=== PATIENT | male | born 1955 | race American Indian/Alaskan Native ===

== ENCOUNTER 2019-04-19 17:00 | Emergency (ER) | payer OTHER ==
--- NOTE | 2019-04-19 17:14 | Event Note ---
ED Screening Note ED Screening Note: large fluid filled blister to the left foot leg swelling worse in last three-four days cardiac arrest on 04/08/2019 chronic lower extremity swelling no CP exertion SOB orthopnea has been taking his medications lasix 80 mg a day states he has been complaint with fluid intake +smoker, quit two weeks ago This initial assessment/diagnostic orders/clinical plan/treatment(s) is/are subject to change based on patients health status, clinical progression and re- assessment by fellow clinical providers in the ED. Further treatment and workup at subsequent clinical providers discretion. Patient/guardian urged not to elope from the ED as their condition may be serious if not clinically assessed and managed. Initial orders include: labs, XR, EKG
--- NOTE | 2019-04-19 18:16 | XRay Report ---
CHEST 1 VIEW INDICATION / CLINICAL INFORMATION: SOB. COMPARISON: 04/10/2019 FINDINGS: SUPPORT DEVICES: None. HEART / MEDIASTINUM: No significant abnormality. LUNGS / PLEURA: Development of mild interstitial opacity and bibasilar subsegmental atelectasis. No p neumothorax. ADDITIONAL FINDINGS: No significant additional findings. IMPRESSION: 1. Minimal acute interstitial pulmonary edema. Signer Name: Prabhakar Barry MD Signed: 04/19/2019 6:12 PM Workstation Name: [id number]
[2019-04-19 18:51] LABS: Basophils % (Auto) 0.3 % (0.0-1.8); Eosinophils # (Auto) 0.2 K/mm3 (0.0-0.4); Eosinophils % (Auto) 2.7 % (0.0-4.3); Hematocrit 36.7 % (35.5-45.6); Hemoglobin 12.2 gm/dl (11.8-15.2); Lymphocytes # (Auto) 1.5 K/mm3 (1.2-5.4); Lymphocytes % (Auto) 19.5 % (13.4-35.0); Mean Corpuscular HGB Conc 33 % (32-34); Mean Corpuscular Volume 88 fl (84-94); Monocytes # (Auto) 1.2 K/mm3 (0.0-0.8); Monocytes % (Auto) 15.4 % (0.0-7.3); Platelet Count 297 K/mm3 (140-440); Red Blood Count 4.19 M/mm3 (3.65-5.03); Red Cell Distribution Width 15.6 % (13.2-15.2)
[2019-04-19 19:02] LABS: INR 1.15 (0.87-1.13); Partial Thromboplastin Time 30.8 Sec. (24.2-36.6)
[2019-04-19 19:13] LABS: Albumin 3.1 g/dL (3.9-5); Calcium 7.8 mg/dL (8.4-10.2)
[2019-04-19 19:39] LABS: Chol/HDL Ratio 2.66 %
[2019-04-19] MEDS ORDERED: FUROSEMIDE 20 MG TAB PO ONE (19:43)
--- NOTE | 2019-04-19 19:44 | Emergency Department Report ---
ED General Adult HPI - General Chief complaint: Dyspnea/Respdistress Stated complaint: JANICE/LT FT BLISTER Time Seen by Provider: 04/19/19 17:13 Source: patient Mode of arrival: Wheelchair Limitations: Physical Limitation - History of Present Illness Initial comments: Patient presents to the emergency department with a chief complaint of a blister on his left foot. Patient states he was recently discharged last week for cardiac arrest. Patient denies any chest pain, shortness breath, or abdominal pain. Patient states she noticed a blister on his foot this morning and his made him come to the hospital for evaluation. Patient states he wanted to wait to go to the [facility] tomorrow but his made him come. Patient states he did not take his Lasix this morning but otherwise is taking his medications as prescribed. - Related Data Home Medications Medication Instructions Recorded Confirmed Last Taken ALBUTEROL NEB's 2.5 mg IH QID PRN 04/09/19 04/09/19 Unknown Albuterol Sulfate [Proair 2 puff PO QID PRN 04/09/19 04/09/19 Unknown Respiclick] Alogliptin Benzoate [Alogliptin] 6.25 mg PO DAILY 04/09/19 04/09/19 Unknown Atorvastatin Calcium [Lipitor] 40 mg PO DAILY 04/09/19 04/09/19 Unknown Budesonide/Formoterol Fumarate 2 puff PO BID 04/09/19 04/09/19 Unknown [Symbicort 160-4.5 Mcg Inhaler] Divalproex ER [Depakote ER] 1,000 mg PO QHS 04/09/19 04/09/19 Unknown Insulin Aspart (Nf) [NovoLOG 10 unit SQ AC 04/09/19 04/09/19 Unknown Flexpen] Insulin Glargine [Lantus VIAL] 100 unit SUB-Q BID 04/09/19 04/09/19 Unknown Melatonin 3MG TAB 3 mg PO HS PRN 04/09/19 04/09/19 Unknown Nicotine Polacrilex [Nicotine 2 mg PO Q2H PRN 04/09/19 04/09/19 Unknown Lozenge] Sildenafil Citrate 100 mg PO DAILY PRN 04/09/19 04/09/19 Unknown Tamsulosin [Flomax] 0.4 mg PO QDAY 04/09/19 04/09/19 Unknown guaiFENesin 400 mg PO TID 04/09/19 04/09/19 Unknown Previous Rx's Medication Instructions Recorded Last Taken Type ALBUTEROL NEB's [Proventil 0.083% 2.5 mg IH Q4HRT PRN nebu 04/14/19 Unknown Rx NEBS] Acetaminophen [Acetaminophen TAB] 650 mg PO Q4H PRN tablet 04/14/19 Unknown Rx Aspirin EC [Halfprin EC] 81 mg PO QDAY #30 04/14/19 Unknown Rx AtorvaSTATin [Lipitor] 40 mg PO QHS #30 tablet 04/14/19 Unknown Rx Budesonide [Pulmicort Respules] 0.5 mg IH Q12HRT #7 nebu 04/14/19 Unknown Rx Furosemide [Lasix TAB] 80 mg PO BID #60 04/14/19 Unknown Rx Insulin Glargine [Lantus VIAL] 10 units SUB-Q QHS units 04/14/19 Unknown Rx Linagliptin [Tradjenta] 5 mg PO QDAY tablet 04/14/19 Unknown Rx Lispro Insulin [HumaLOG] 0 unit SUB-Q ACHS units 04/14/19 Unknown Rx Min Oil/Petrolatum [Artificial 1 applic OU Q4HR PRN tube 04/14/19 Unknown Rx Tears Ophth Oint] carvediloL [Coreg] 12.5 mg PO BID #60 04/14/19 Unknown Rx Allergies Allergy/AdvReac Type Severity Reaction Status Date / Time No Known Allergies Allergy Verified 04/08/19 06:26 ED Review of Systems ROS: Stated complaint: JANICE/LT FT BLISTER Other details as noted in HPI Comment: All other systems reviewed and negative Constitutional: denies: chills, fever Eyes: denies: eye pain, eye discharge, vision change ENT: denies: ear pain, throat pain Respiratory: denies: cough, shortness of breath, wheezing Cardiovascular: denies: chest pain, palpitations Endocrine: no symptoms reported Gastrointestinal: denies: abdominal pain, nausea, diarrhea Genitourinary: denies: urgency, dysuria Musculoskeletal: denies: back pain, joint swelling, arthralgia Skin: denies: rash, lesions Neurological: denies: headache, weakness, paresthesias Psychiatric: denies: anxiety, depression Hematological/Lymphatic: denies: easy bleeding, easy bruising ED Past Medical Hx - Past Medical History Hx Hypertension: Yes Hx Congestive Heart Failure: Yes Hx Diabetes: Yes Hx Asthma: No Hx COPD: No - Surgical History Past Surgical History?: No - Social History Smoking Status: Never Smoker Substance Use Type: None - Medications Home Medications: Home Medications Medication Instructions Recorded Confirmed Last Taken Type ALBUTEROL NEB's 2.5 mg IH QID PRN 04/09/19 04/09/19 Unknown History Albuterol Sulfate [Proair 2 puff PO QID PRN 04/09/19 04/09/19 Unknown History Respiclick] Alogliptin Benzoate [Alogliptin] 6.25 mg PO DAILY 04/09/19 04/09/19 Unknown History Atorvastatin Calcium [Lipitor] 40 mg PO DAILY 04/09/19 04/09/19 Unknown History Budesonide/Formoterol Fumarate 2 puff PO BID 04/09/19 04/09/19 Unknown History [Symbicort 160-4.5 Mcg Inhaler] Divalproex ER [Depakote ER] 1,000 mg PO QHS 04/09/19 04/09/19 Unknown History Insulin Aspart (Nf) [NovoLOG 10 unit SQ AC 04/09/19 04/09/19 Unknown History Flexpen] Insulin Glargine [Lantus VIAL] 100 unit SUB-Q BID 04/09/19 04/09/19 Unknown History Melatonin 3MG TAB 3 mg PO HS PRN 04/09/19 04/09/19 Unknown History Nicotine Polacrilex [Nicotine 2 mg PO Q2H PRN 04/09/19 04/09/19 Unknown History Lozenge] Sildenafil Citrate 100 mg PO DAILY PRN 04/09/19 04/09/19 Unknown History Tamsulosin [Flomax] 0.4 mg PO QDAY 04/09/19 04/09/19 Unknown History guaiFENesin 400 mg PO TID 04/09/19 04/09/19 Unknown History ALBUTEROL NEB's [Proventil 0.083% 2.5 mg IH Q4HRT PRN nebu 04/14/19 Unknown Rx NEBS] Acetaminophen [Acetaminophen TAB] 650 mg PO Q4H PRN tablet 04/14/19 Unknown Rx Aspirin EC [Halfprin EC] 81 mg PO QDAY #30 04/14/19 Unknown Rx AtorvaSTATin [Lipitor] 40 mg PO QHS #30 tablet 04/14/19 Unknown Rx Budesonide [Pulmicort Respules] 0.5 mg IH Q12HRT #7 nebu 04/14/19 Unknown Rx Furosemide [Lasix TAB] 80 mg PO BID #60 04/14/19 Unknown Rx Insulin Glargine [Lantus VIAL] 10 units SUB-Q QHS units 04/14/19 Unknown Rx Linagliptin [Tradjenta] 5 mg PO QDAY tablet 04/14/19 Unknown Rx Lispro Insulin [HumaLOG] 0 unit SUB-Q ACHS units 04/14/19 Unknown Rx Min Oil/Petrolatum [Artificial 1 applic OU Q4HR PRN tube 04/14/19 Unknown Rx Tears Ophth Oint] carvediloL [Coreg] 12.5 mg PO BID #60 04/14/19 Unknown Rx ED Physical Exam - General Limitations: Physical Limitation General appearance: alert, in no apparent distress - Head Head exam: Present: atraumatic, normocephalic - Eye Eye exam: Present: normal appearance, PERRL, EOMI - ENT ENT exam: Present: mucous membranes moist - Neck Neck exam: Present: normal inspection - Respiratory Respiratory exam: Present: normal lung sounds bilaterally, other (life vest present). Absent: respiratory distress - Cardiovascular Cardiovascular Exam: Present: regular rate, normal rhythm. Absent: systolic murmur, diastolic murmur, rubs, gallop - GI/Abdominal GI/Abdominal exam: Present: soft, normal bowel sounds. Absent: distended, tenderness - Rectal Rectal exam: Present: deferred - Extremities Exam Extremities exam: Present: normal inspection - Back Exam Back exam: Present: normal inspection - Neurological Exam Neurological exam: Present: alert, oriented X3, CN II-XII intact. Absent: motor sensory deficit - Psychiatric Psychiatric exam: Present: normal affect, normal mood - Skin Skin exam: Present: warm, dry, intact, normal color, vesicles (patient has an approximately 3 cm in diameter blister to the left tonsil aspect of his foot that is not painful and not sloughing). Absent: rash ED Course Vital Signs 04/19/19 17:12 Temperature 97.6 F Pulse Rate 99 H Respiratory 24 Rate Blood Pressure 138/88 O2 Sat by Pulse 98 Oximetry ED Medical Decision Making - Lab Data Result diagrams: 04/19/19 18:21 04/19/19 18:21 Lab Results 04/19/19 04/19/19 04/19/19 Range/Units 18:21 18:21 18:21 WBC 7.7 (4.5-11.0) K/mm3 RBC 4.19 (3.65-5.03) M/mm3 Hgb 12.2 (11.8-15.2) gm/dl Hct 36.7 (35.5-45.6) % MCV 88 (84-94) fl MCH 29 (28-32) pg MCHC 33 (32-34) % RDW 15.6 H (13.2-15.2) % Plt Count 297 (140-440) K/mm3 Lymph % (Auto) 19.5 (13.4-35.0) % [place] % (Auto) 15.4 H (0.0-7.3) % Eos % (Auto) 2.7 (0.0-4.3) % Baso % (Auto) 0.3 (0.0-1.8) % Lymph # 1.5 (1.2-5.4) K/mm3 [place] # 1.2 H (0.0-0.8) K/mm3 Eos # 0.2 (0.0-0.4) K/mm3 Baso # 0.0 (0.0-0.1) K/mm3 Seg Neutrophils % 62.1 (40.0-70.0) % Seg Neutrophils # 4.8 (1.8-7.7) K/mm3 PT 14.9 (12.2-14.9) Sec. INR 1.15 H (0.87-1.13) APTT 30.8 (24.2-36.6) Sec. Sodium 146 H (137-145) mmol/L Potassium 3.6 (3.6-5.0) mmol/L Chloride 104.0 (98-107) mmol/L Carbon Dioxide 29 (22-30) mmol/L Anion Gap 17 mmol/L BUN 18 (9-20) mg/dL Creatinine 1.6 H (0.8-1.5) mg/dL Estimated GFR 53 ml/min BUN/Creatinine Ratio 11 % Glucose 96 (75-100) mg/dL Calcium 7.8 L (8.4-10.2) mg/dL Total Bilirubin 0.40 (0.1-1.2) mg/dL AST 19 (5-40) units/L ALT 42 (7-56) units/L Alkaline Phosphatase 152 H (35-129) units/L Troponin T 0.036 H (0.00-0.029) ng/mL NT-Pro-B Natriuret Pep (0-900) pg/mL Total Protein 7.1 (6.3-8.2) g/dL Albumin 3.1 L (3.9-5) g/dL Albumin/Globulin Ratio 0.8 % Triglycerides (2-149) mg/dL Cholesterol (50-199) mg/dL LDL Cholesterol Direct (50-130) mg/dL HDL Cholesterol (40-59) mg/dL Cholesterol/HDL Ratio % 04/19/19 04/19/19 Range/Units 18:21 18:21 WBC (4.5-11.0) K/mm3 RBC (3.65-5.03) M/mm3 Hgb (11.8-15.2) gm/dl Hct (35.5-45.6) % MCV (84-94) fl MCH (28-32) pg MCHC (32-34) % RDW (13.2-15.2) % Plt Count (140-440) K/mm3 Lymph % (Auto) (13.4-35.0) % [place] % (Auto) (0.0-7.3) % Eos % (Auto) (0.0-4.3) % Baso % (Auto) (0.0-1.8) % Lymph # (1.2-5.4) K/mm3 [place] # (0.0-0.8) K/mm3 Eos # (0.0-0.4) K/mm3 Baso # (0.0-0.1) K/mm3 Seg Neutrophils % (40.0-70.0) % Seg Neutrophils # (1.8-7.7) K/mm3 PT (12.2-14.9) Sec. INR (0.87-1.13) APTT (24.2-36.6) Sec. Sodium (137-145) mmol/L Potassium (3.6-5.0) mmol/L Chloride (98-107) mmol/L Carbon Dioxide (22-30) mmol/L Anion Gap mmol/L BUN (9-20) mg/dL Creatinine (0.8-1.5) mg/dL Estimated GFR ml/min BUN/Creatinine Ratio % Glucose (75-100) mg/dL Calcium (8.4-10.2) mg/dL Total Bilirubin (0.1-1.2) mg/dL AST (5-40) units/L ALT (7-56) units/L Alkaline Phosphatase (35-129) units/L Troponin T 0.038 H (0.00-0.029) ng/mL NT-Pro-B Natriuret Pep 3249 H (0-900) pg/mL Total Protein (6.3-8.2) g/dL Albumin (3.9-5) g/dL Albumin/Globulin Ratio % Triglycerides 71 (2-149) mg/dL Cholesterol 112 (50-199) mg/dL LDL Cholesterol Direct 65 (50-130) mg/dL HDL Cholesterol 42 (40-59) mg/dL Cholesterol/HDL Ratio 2.66 % - EKG Data -: EKG Interpreted by Me EKG shows normal: sinus rhythm Rate: tachycardia - Radiology Data Radiology results: report reviewed - Medical Decision Making Laboratory values reviewed from the patient's prior visit with a troponin on April 08 began 0.097 and a BNP of 4279 Today the patient's troponin is 0.038 and the patient's chest pain-free. The patient does have a BNP of greater than 2000 Admission was offered to the patient but the patient politely declined stating he wants to go home and feels okay. Patient states he was only here to get his foot with that. Patient states he would take his Lasix when he gets home and states she will rather go home instead of being admitted Patient contacted his via his cell phone and the plan of care was discussed and she states she will make sure that the patient takes his Lasix and follow up with the [place] tomorrow Critical care attestation.: If time is entered above; I have spent that time in minutes in the direct care of this critically ill patient, excluding procedure time. ED Disposition Clinical Impression: Blister of foot, CHF (congestive heart failure) Disposition: TO HOME OR SELFCARE Is pt being admited?: No Does the pt Need Aspirin: No Condition: Stable Instructions: Blister (ED), Heart Failure (ED) Additional Instructions: return if worse Referrals: ROSSANA HOGUE DPM [Staff Physician] - 3-5 Days Time of Disposition: 19:44
[2019-04-19 19:46] VITALS: BP 135/66
== END 2019-04-19 20:02 | disposition home or self-care (01) ==
LOC: ED 17:00
DX: S90.822A Blister (nonthermal), left foot, initial encounter (principal); I11.0 Hypertensive heart disease with heart failure; I50.9 Heart failure, unspecified; R06.00 Dyspnea, unspecified; E11.9 Type 2 diabetes mellitus without complications; Z79.899 Other long term (current) drug therapy; X58.XXXA Exposure to other specified factors, initial encounter; Y93.89 Activity, other specified; Y92.89 Other specified places as the place of occurrence of the external cause; Y99.8 Other external cause status
CPT/HCPCS: 36415; 71045; 80053; 80061; 83880; 84484; 85025; 85610; 85730; 93005; 93010

== ENCOUNTER 2020-01-01 21:55 | Emergency (ER) | payer OTHER | END 2020-01-02 03:25 | disposition left against medical advice (07) | LOC: ED 21:55 | DX: S80.811A Abrasion, right lower leg, initial encounter (principal); Z53.21 Procedure and treatment not carried out due to patient leaving prior to being seen by health care provider; W19.XXXA Unspecified fall, initial encounter; Y93.89 Activity, other specified; Y92.89 Other specified places as the place of occurrence of the external cause; Y99.8 Other external cause status ==